=== PATIENT | male | born 1935 | race Caucasian/White ===

== ENCOUNTER 2016-10-08 09:34 | Inpatient (IN) | payer OTHER ==
[~2016-10-08] VITALS: Ht 177.8 cm; Wt 86.9 kg
[2016-10-08] VITALS (8 sets, daily range): BP systolic 136–210; BP diastolic 67–100
--- NOTE | ~2016-10-08 | EKG ---
[place], [place] ELECTROCARDIOGRAM REPORT NAME: MARTIR CHANEY JR UNIT #: [id number] ROOM: 424 DOCTOR: AVERY LANIER MD BIRTHDATE: [birth year] DOS: 10/08/2016 TIME: 09:53 RATE AND RHYTHM: Sinus bradycardia at 53 beats per minute, WI interval 376 milliseconds, QRS duration is 92 milliseconds, corrected QT interval is 468 milliseconds, QRS axis is 15. IMPRESSION: 1. Sinus bradycardia. 2. Prolonged WI interval. 3. T-wave changes in lead V4-V6. There is T-wave flattening noted. Consider anteroseptal ischemia in the lateral leads. No old EKG to compare with. There is first-degree AV block noted. AVERY LANIER MD CM:EKGRPT:ELECTROCARDIOGRAM REPORT [id number] AVERY LANIER MD
[~2016-10-08 09:34] MED LIST: ASPIRIN ADULT L81 M1 PO; Altace5 MG PO; B12,B-12,B 12500 MC1 PO; CEPHALEXIN500 M1 PO; CIPROFLOXACIN500 MG PO; COREG12.5 MG PO; COREG25 MG PO; DYAZIDE; DYAZIDE 25 MG-31 CAP PO; FISH OIL1 IU PO; FOLIC ACID0.8 MG PO; GLUCOPHAGE1000 MG PO; HUMULIN N100 U/ML SC; HYDROCODONE BIT1 T11 PO; LANTUS100 U/ML; LASIX20 MG PO; LEVEMIR10 ML SC; MULTI VITAMINS1 TAB PO; NORVASC10 MG PO; NORVASC5 MG PO; NOVOLOG FLEX100 U/ML SC; NOVOLOG100 U/ML SC; PLAVIX75 MG PO; UNASYN 3GM3 GM/100 M IM; VYTORIN 10 MG-21 TA1 PO
[2016-10-08 09:59] LABS: HEMATOCRIT 44.8 % (42.0-52.0); MEAN CELL VOLUME 95.9 fl (80.0-94.0); MEAN CORPUSCULAR HGB 32.1 pg (27.0-31.0); MEAN CORPUSCULAR HGB CONC 33.5 g/dl (33.0-37.0); MEAN PLATELET VOLUME 10.6 fl (9.6-12.3); PLATELET COUNT AUTOMATED 102 10*3/uL (130-400); RED BLOOD COUNT 4.67 10*6/uL (4.50-5.90); RED CELL DISTRI WIDTH 13.6 % (0-14.5); WHITE BLOOD COUNT 7.1 10*3/uL (4.8-10.8)
[2016-10-08 10:14] LABS: CKMB 3.4 ng/ml (0.5-3.6)
[2016-10-08 10:16] LABS: ALBUMIN 3.1 gm/dl (3.1-4.5); BILIRUBIN, TOTAL 0.5 mg/dl (0.2-1.0); POTASSIUM 3.4 mmol/L (3.5-5.1); TOTAL PROTEIN 6.9 gm/dL (6.4-8.2); TROPONIN I 0.133 ng/ml (<0.5)
[2016-10-08 10:18] LABS: EOSINOPHIL # 0.1 10*3/uL (0-0.4); EOSINOPHILS 2 % (1-4); LYMPHOCYTE # 1.1 10*3/uL (1.3-4.4); METAMYELOCYTES 1 % (0-0); MONOCYTE # 0.4 10*3/uL (0.1-1.0); NEUTROPHIL # 5.5 10*3/uL (2.3-7.9); NEUTROPHILS 77 % (47-73); TOTAL CELLS COUNTED 100 #CELLS
[2016-10-08 10:19] LABS: PLATELET SUFFICIENCY LOW (NORMAL)
[2016-10-08] MEDS ORDERED: LEVEMIR10 ML SC (11:09)
[2016-10-08] MEDS ORDERED: GLUCOPHAGE1000 MG PO (11:12)
[2016-10-08] MEDS ORDERED: ZOCOR10 MG PO ×2 (11:12→11:29)
[2016-10-08] MEDS ORDERED: PLAVIX75 M1 PO (11:12)
[2016-10-08] MEDS ORDERED: COREG12.5 M1 PO (11:26)
[2016-10-08] MEDS ORDERED: ALTACE10 MG PO (11:28)
[2016-10-08 15:27] LABS: BILIRUBIN NEGATIVE (NEGATIVE); BLOOD 2+ (NEGATIVE); CLARITY CLEAR (CLEAR); COLOR YELLOW (YELLOW); GLUCOSE TRACE (NEGATIVE); KETONE NEGATIVE (NEGATIVE); LEUKO ESTERASE NEGATIVE (NEGATIVE); NITRITE NEGATIVE (NEGATIVE); PH 5.5 (5.0-9.0); PROTEIN 3+ (NEGATIVE); UROBILINOGEN 0.2 E.U./dl (0.2-1.0)
[2016-10-08 15:43] LABS: MUCOUS TRACE; URINE REFLEX COMMENT YES (NO)
[2016-10-08 16:30] LABS: URINE TP/CRE RATIO 3.7 (<0.21)
[2016-10-08 20:07] LABS: TROPONIN I 0.198 ng/ml (<0.5)
[2016-10-08 20:08] LABS: CKMB 5.1 ng/ml (0.5-3.6)
[2016-10-09] VITALS: BP 144/53
[2016-10-09 00:49] LABS: CKMB 3.5 ng/ml (0.5-3.6); TROPONIN I 0.174 ng/ml (<0.5)
[2016-10-09 04:00] VITALS: BP 125/87
[2016-10-09 06:40] LABS: BASO % 0.3 % (0.0-1.0); EOS # 0.1 10*3/uL (0.0-0.4); EOS % 1.3 % (1.0-4.0); LYMPH # 1.4 10*3/uL (1.3-4.4); LYMPH % 23.3 % (27.0-41.0); MEAN CELL VOLUME 93.3 fl (80.0-94.0); MEAN CORPUSCULAR HGB 32.2 pg (27.0-31.0); MEAN CORPUSCULAR HGB CONC 34.5 g/dl (33.0-37.0); MEAN PLATELET VOLUME 10.9 fl (9.6-12.3); MONO # 0.5 10*3/uL (0.1-1.0); MONO % 7.5 % (3.0-9.0); NEUT # 4.1 10*3/uL (2.3-7.9); NEUT % 66.9 % (47.0-73.0); PLATELET COUNT AUTOMATED 107 10*3/uL (130-400); RED BLOOD COUNT 3.88 10*6/uL (4.50-5.90); RED CELL DISTRI WIDTH 13.4 % (0-14.5); WHITE BLOOD COUNT 6.1 10*3/uL (4.8-10.8)
[2016-10-09 06:44] LABS: HEMATOCRIT 36.2 % (42.0-52.0); HEMOGLOBIN 12.5 g/dl (14.0-18.0)
[2016-10-09 06:46] LABS: CKMB 2.5 ng/ml (0.5-3.6); TROPONIN I 0.166 ng/ml (<0.5)
[2016-10-09 06:55] LABS: PROTHROMBIN TIME 10.6 SECONDS (9.0-12.4)
[2016-10-09 07:05] LABS: ALBUMIN 2.8 gm/dl (3.1-4.5); BILIRUBIN, TOTAL 0.4 mg/dl (0.2-1.0); FREE T4 1.07 ng/dl (0.76-1.46); PHOSPHOROUS 3.1 mg/dL (2.5-4.9); POTASSIUM 3.9 mmol/L (3.5-5.1); THYROID STIM HORMONE (HS) 5.03 uIU/ml (0.358-4.75)
[2016-10-09 07:50] LABS: HEMOGLOBIN A1c 8.3 % (4.8-5.6)
[2016-10-09 07:59] VITALS: BP 130/70
[2016-10-09 09:41] LABS: VITAMIN D, 25-HYDROXY 8.5 ng/mL (30-100)
[2016-10-09 09:42] LABS: FOLIC ACID 4.76 ng/mL (>5.38); PTH INTACT 223.1 pg/mL (14.0-72.0)
[2016-10-09 12:00] VITALS: BP 136/72
[2016-10-09] MEDS ORDERED: VITAMIN D50000 I3 PO (14:24)
[2016-10-09] MEDS ORDERED: NATURE'S BLEND F1 MG PO (14:24)
[2016-10-09] MEDS ORDERED: LEVEMIR10 ML SC (14:24)
[2016-10-09] MEDS ORDERED: B12,B-12,B 12500 MC1 PO (14:24)
[2016-10-09] MEDS ORDERED: BACTRIM DS 8001 TA1 PO (14:33)
[2016-10-09] MEDS ORDERED: CIPRO500 MG PO (15:12)
[2016-10-10 07:06] LABS: HEPATITIS C VIRUS ANTIBODY <0.1 s/co (0.0-0.9)
[2016-10-10 09:10] LABS: COMPLEMENT C4 001834 20 mg/dL (14-44)
[2016-10-10 14:06] LABS: A/G RATIO 1.1 (0.7-1.7); ALBUMIN 2.9 g/dL (2.9-4.4); ALPHA-1-GLOBULIN 0.2 g/dL (0.0-0.4); BETA GLOBULIN 0.9 g/dL (0.7-1.3); GLOBULIN, TOTAL 2.7 g/dL (2.2-3.9); INTERPRETATION Comment: (.); M-SPIKE Not Observed g/dL (Not Observed); TOTAL PROTEIN, SERUM 5.6 g/dL (6.0-8.5)
[2016-10-10 17:11] LABS: FREE KAPPA LIGHT CHAINS 49.26 mg/L (3.30-19.40); FREE LAMBDA LIGHT CHAINS 42.57 mg/L (5.71-26.30); KAPPA/LAMBDA RATIO 1.16 (0.26-1.65)
== END 2016-10-09 16:06 | disposition home or self-care (01) | DRG 683 ==
LOC: ED 09:34 → 4E 11:11 → EDHOLD 11:11 → 4E 11:27
PROVIDERS: Hospitalist; Internal Medicine Nephrology; Nurse Practitioner Family
DX: N17.0 Acute kidney failure with tubular necrosis (principal); E87.0 Hyperosmolality and hypernatremia; E44.0 Moderate protein-calorie malnutrition; E11.22 Type 2 diabetes mellitus with diabetic chronic kidney disease; N39.0 Urinary tract infection, site not specified; G45.9 Transient cerebral ischemic attack, unspecified; E11.649 Type 2 diabetes mellitus with hypoglycemia without coma; I12.9 Hypertensive chronic kidney disease with stage 1 through stage 4 chronic kidney disease, or unspecified chronic kidney disease; I16.0 Hypertensive urgency; N18.3 Chronic kidney disease, stage 3 (moderate); E87.6 Hypokalemia; E86.0 Dehydration; E55.9 Vitamin D deficiency, unspecified; E53.8 Deficiency of other specified B group vitamins; Z79.82 Long term (current) use of aspirin; Z79.899 Other long term (current) drug therapy; Z79.4 Long term (current) use of insulin; Z88.3 Allergy status to other anti-infective agents; Z98.890 Other specified postprocedural states; Z82.49 Family history of ischemic heart disease and other diseases of the circulatory system; Z82.3 Family history of stroke; Z68.24 Body mass index [BMI] 24.0-24.9, adult

== ENCOUNTER → 2016-12-06 | Outpatient (CLI) | payer OTHER ==
[~2016-12-06] MED LIST changes: +ALTACE10 MG PO; +BACTRIM DS 8001 TA1 PO; +CIPRO500 MG PO; +COREG12.5 M1 PO; +NATURE'S BLEND F1 MG PO; +PLAVIX75 M1 PO; +VITAMIN D50000 I3 PO; +ZOCOR10 MG PO
[2016-12-06 16:32] LABS: BILIRUBIN NEGATIVE (NEGATIVE); BLOOD 1+ (NEGATIVE); CLARITY CLEAR (CLEAR); COLOR YELLOW (YELLOW); GLUCOSE NEGATIVE (NEGATIVE); KETONE NEGATIVE (NEGATIVE); LEUKO ESTERASE NEGATIVE (NEGATIVE); NITRITE NEGATIVE (NEGATIVE); PROTEIN 2+ (NEGATIVE); UROBILINOGEN 0.2 E.U./dl (0.2-1.0)
[2016-12-06 16:39] LABS: URINE TP/CRE RATIO 4.4 (<0.21)
[2016-12-06 16:49] LABS: MUCOUS TRACE; WBC 0-2 wbc/hpf (0-5)
[2016-12-06 16:50] LABS: URINE REFLEX COMMENT YES (NO)
[2016-12-06 16:59] LABS: ALBUMIN 3.2 gm/dl (3.1-4.5); MAGNESIUM 2.2 mg/dL (1.5-2.1); PHOSPHOROUS 2.8 mg/dL (2.5-4.9); POTASSIUM 4.6 mmol/L (3.5-5.1)
[2016-12-06 17:09] LABS: VITAMIN D, 25-HYDROXY 34.8 ng/mL (30-100)
[2016-12-06 17:10] LABS: FERRITIN 33.4 ng/mL (22.0-322.0); PTH INTACT 265.4 pg/mL (14.0-72.0)
[2016-12-06 17:31] LABS: BASO % 0.7 % (0.0-1.0); EOS # 0.1 10*3/uL (0.0-0.4); EOS % 1.9 % (1.0-4.0); HEMATOCRIT 40.1 % (42.0-52.0); HEMOGLOBIN 13.4 g/dl (14.0-18.0); LYMPH # 1.7 10*3/uL (1.3-4.4); LYMPH % 28.5 % (27.0-41.0); MEAN CORPUSCULAR HGB 31.8 pg (27.0-31.0); MEAN CORPUSCULAR HGB CONC 33.4 g/dl (33.0-37.0); MEAN PLATELET VOLUME 11.5 fl (9.6-12.3); MONO # 0.5 10*3/uL (0.1-1.0); MONO % 8.5 % (3.0-9.0); NEUT # 3.5 10*3/uL (2.3-7.9); NEUT % 59.9 % (47.0-73.0); PLATELET COUNT AUTOMATED 132 10*3/uL (130-400); RED BLOOD COUNT 4.22 10*6/uL (4.50-5.90); RED CELL DISTRI WIDTH 13.7 % (0-14.5); WHITE BLOOD COUNT 5.8 10*3/uL (4.8-10.8)
== END | disposition home or self-care (01) ==
LOC: LAB 16:02
PROVIDERS: Internal Medicine Nephrology
DX: N18.3 Chronic kidney disease, stage 3 (moderate) (principal); D63.1 Anemia in chronic kidney disease; N25.81 Secondary hyperparathyroidism of renal origin

== ENCOUNTER 2016-12-27 14:00 | Inpatient (IN) | payer OTHER ==
[~2016-12-27] VITALS: Ht 177.8 cm; Wt 87.1 kg
--- NOTE | ~2016-12-27 | CON ---
[place], [place] REPORT OF CONSULTATION NAME: MARTIR CHANEY JR UNIT #: [id number] ROOM: 531 DOCTOR: CARMEN VICTOR [facility],JAGDSIH BIRTHDATE: [birth year] DOS: 12/29/2016 CARDIOLOGY CONSULTATION THE PATIENT IS ALLERGIC TO CLINDAMYCIN. The patient came in apparently with wound on the right foot. History of diabetes since 1983. Denies any tobacco use. Hemoglobin 11.1, WBC count is unremarkable and glucose is 504. The patient poorly controlled diabetes on 12/29/2016. Creatinine is 2. BUN is 29 indicating chronic kidney disease. Denies any chest discomfort. No syncope, presyncope. Discoloration of the both lower extremities more so on the left than the right. Pulses are diminished. Electrolytes were unremarkable. Cellulitis of the left foot. PHYSICAL EXAMINATION: VITAL SIGNS: Stable. LUNGS: Diminished breath sounds in base, bibasilar rales. HEART: S1, S2, regular. ABDOMEN: Soft. SKIN: Color is good. Not diaphoretic. No cyanosis. Underlying peripheral vascular noninvasive study indicating peripheral arterial disease. The patient for MRI. The patient is on Plavix 75 mg daily and insulin therapy and Norvasc 2.5 mg daily to improve the perfusion and does not appear to be in immediate danger as far as the ischemic limb. And explained to the patient at length. Baby aspirin daily and the patient to undergo aorta bifemoral angiogram with the distal runoff. If it is abnormal intervention otherwise consider therapy. He is aware of it and the patient on simvastatin 10 mg at bedtime daily and heparin 5000 units subQ twice a day on antibiotics. Rectal and genital exam deferred and unrelated. Thank you very much for asking me to see the patient. Follow the patient with you. JAGDISH MORALES MD CM:CONSTR:REPORT OF CONSULTATION 99 12/30/16920 interface
--- NOTE | ~2016-12-27 | PR ---
[place], [place] PROGRESS NOTE NAME: MARTIR CHANEY JR [facility] #: [id number] UNIT #: [id number] ROOM: 531 DOCTOR: YANA URRUTIA DPM BIRTHDATE: [birth year] DOS: 12/31/2016 SUBJECTIVE: The patient was seen for followup Charcot arthropathy of left foot with cellulitis and ulceration, plantar left foot. OBJECTIVE: There is mild erythema that is still noted to the plantar left foot. No signs of abscess. The ulceration is showing no acute drainage at this time to the plantar medial left arch. The patient's WBC count is normal. MRI was discussed with Dr. Parra and the radiologist, consistent with Charcot arthropathy. ASSESSMENT: Diabetic ulceration with improving cellulitis, plantar left foot; Charcot arthropathy; peripheral vascular disease. PLAN: Evaluation and management discussed with the patient. Treatment options, the patient is being discharged today. We will order Bactroban and dressing to the ulceration once daily. The patient will follow with Dr. Parra at the office on Friday. Antibiotics will be continued via Infectious Disease. Again, discussed with patient and recommend he proceed with vascular consultation and intervention. We will offload the Charcot arthropathy deformity with a pneumatic walker on an outpatient basis. Discussed possibility of a TORCH walker or other assistive device to offload the mid foot. The patient is agreeable with this and will follow up on Friday with Dr. Parra. YANA URRUTIA DPM CM:BALJEET [id number] YANA URRUTIA DPM 01/01/17 0235 interface
--- NOTE | ~2016-12-27 | CON ---
[place], [place] REPORT OF CONSULTATION NAME: MARTIR CHANEY JR [facility] #: [id number] UNIT #: [id number] ROOM: 531 DOCTOR: YANA URRUTIA DPM BIRTHDATE: [birth year] DOS: 12/28/2016 SUBJECTIVE: The patient presents as an 81-year-old white male who was seen by my partner, Dr. Parra yesterday at the office for ulceration with cellulitis and suspected Charcot arthropathy of the left foot. I have reviewed the patient's radiographs. These were taken at the office, which I concur revealed evidence of early Charcot arthropathy of the left mid foot. The patient was subsequently admitted yesterday. PAST MEDICAL HISTORY: B12 deficiency, bilateral lower leg chronic edema, essential hypertension, folate deficiency, hypercholesterolemia, protein-calorie malnutrition, secondary hyperparathyroidism of renal origin, stage 3 chronic kidney disease, type 2 diabetes with hyperglycemia with long-term current use of insulin, and vitamin D deficiency. SURGICAL HISTORY: Appendectomy, prostate biopsy, tonsillectomy, heart cath. SOCIAL HISTORY: Denies alcohol, smoking, or illicit drug use. FAMILY HISTORY: Father at age 70 with CHF. Brother at age 68. Mother at age 93 of cause of old age. PHYSICAL EXAMINATION: EXTREMITIES: Lower extremity examination, pedal pulses are diminished of bilateral lower extremity. There is edema to the left lower extremity at the ankle and foot. There is mild erythema noted to the foot. Ulceration, plantar aspect of the left arch is full thickness. There are no signs of deep sinus tract, no signs of acute abscess. Again, review of the radiographs revealed suspicious changes of early Charcot arthropathy. ASSESSMENT: Diabetic ulceration, peripheral vascular disease, diabetic ulceration on plantar aspect left foot, possible early Charcot arthropathy with underlying cellulitis. PLAN: Evaluation and management discussed with the patient treatment options. The patient has a pending MRI scheduled for further evaluation and possible Charcot arthropathy, ordered Bactroban ointment dressing daily to the ulceration. Infectious Disease has been consulted. Also reviewed the results of the arterial Doppler, which revealed findings consistent with moderate arterial disease bilateral, biphasic waveforms in the thigh bilaterally suggested at least mild aortoiliac disease bilateral. The right dorsalis pedis artery appeared occluded and additional arterial disease in the distal superficial femoral or popliteal artery of the left. Therefore, Dr. Mascorro was consulted for vascular consultation. The patient discussed, he would like to be discharged on a PICC line with home antibiotics. Discussed with the patient, he can discuss this with Internal Medicine and Infectious Disease. Again, the patient has pending MRI ordered apparently for Friday. If the patient by chance is discharged, I would recommend outpatient MRI and vascular consultation, but hopefully the patient will be agreeable to stay in-house to have the vascular consultation along with infectious disease followup and MRI performed before [place], [place] REPORT OF CONSULTATION NAME: MARTIR CHANEY JR UNIT #: [id number] ROOM: 531 DOCTOR: YANA URRUTIA DPM BIRTHDATE: [birth year] going home. Discussed this recommendation with the patient. I will discuss the case with Dr. Parra via telephone and notify him of his patient's condition. YANA URRUTIA DPM CM:CONSTR:REPORT OF CONSULTATION 1020 12/28/16 1945 interface
--- NOTE | ~2016-12-27 | PR ---
[place], [place] PROGRESS NOTE NAME: MARTIR CHANEY JR UNIT #: [id number] ROOM: 531 DOCTOR: SEDRICK TANNER DPM BIRTHDATE: [birth year] DOS: 12/30/2016 SUBJECTIVE: This patient is seen for followup of diabetic ulcer and cellulitis of left foot. Also, has probable Charcot arthropathy, left foot. He states he is feeling better. The foot is not painful anymore and he denies fever, chills, nausea, vomiting or night sweats. OBJECTIVE: Neurologic status decreased bilaterally, DP pedal pulses palpable, PT pedal pulses diminished. There are 2 small plantar left medial arch wounds, which are fairly clean and granular. Minimal necrotic tissue was seen at the more lateral wound. There is a moderate decrease in erythema and edema from Friday when I saw the patient. There is no drainage, no fluctuance, no deep sinus tract seen. Mild medial column coapts at the foot with no significant breakdown or significant valgus deformity of the foot on the long axis of the leg. LABORATORY DATA: His white blood cell count is normal. His MRI is being done today. He did have arterial vascular studies done and Dr. Shah did see him, which he basically wanted to keep him on the blood thinner and do no further intervention. ASSESSMENT: Diabetic ulcer, left foot with improving cellulitis, probable Charcot arthropathy, pending MRI. PLAN: Evaluation and management. I discussed with the patient that he is having his MRI today, which will let us know whether or not there is the Charcot process occurring in his left foot. I think from an infectious standpoint, it is improving nicely. I discussed with the patient about the need to be very limited weightbearing on the left foot secondary to the ulcers and possible Charcot. We will see what his MRI shows. Appreciate Infectious Disease input on antibiotics and we will follow up with patient tomorrow if he is still here. If not, we could see him as an outpatient. If his MRI shows Charcot, then he will need long-term immobilization of the left foot. [place], [place] PROGRESS NOTE NAME: MARTIR CHANEY JR UNIT #: [id number] ROOM: 531 DOCTOR: SEDRICK TANNER DPM BIRTHDATE: [birth year] SEDRICK TANNER DPM CM:BALJEET 1156 2 SEDRICK TANNER DPM 12/31/16242 interface
--- NOTE | ~2016-12-27 | PR ---
[place], [place] PROGRESS NOTE NAME: MARTIR CHANEY JR UNIT #: [id number] ROOM: 531 DOCTOR: JAGDISH MORALES MD, FACC BIRTHDATE: [birth year] DOS: 12/30/2016 HISTORY OF PRESENT ILLNESS: The patient feeling well and not in any acute distress. The patient for PICC line today. The patient has a cellulitis wound on the left foot, diabetic, underlying peripheral arterial disease also concern by noninvasive study. The patient needs abdominal aortogram and aortobifemoral angiogram with the distal runoff. I talked to the patient at length and once he confirms and talks to the family whether they decide to have it done we will take him to [place] and do the angiogram. If there is significant disease, we may do the endovascular intervention and if not, conservative management as described. We will try to maintain the optimal blood pressure and watch dilator effect. PHYSICAL EXAMINATION: SKIN: Warm, not diaphoretic. NECK: Supple. LUNGS: No rales heard. HEART: S1, S2, regular. ABDOMEN: Soft. LABORATORY DATA: Hemoglobin 13.2, WBC is 11.8 and electrolytes are normal. INR 1.1. Renal function is good. GFR is normal. Liver functions are unremarkable. Troponin is unremarkable. Chest x-ray done ____ with band-like area of ____. The patient is hypertensive somewhat and the blood pressure 172/78 and afebrile. Heart rate is 60, respiratory rate is 18. Hemoglobin 11.9. IMPRESSION: Hypertension. Peripheral arterial disease may be considered, diabetic, and foot ulcer. PLAN: Increase the amlodipine to 5 mg daily and Imdur 60 mg daily and the patient for peripheral angiogram when the patient decided to have it done. Thank you very much. [place], [place] PROGRESS NOTE NAME: MARTIR CHANEY JR UNIT #: [id number] ROOM: 531 DOCTOR: JAGDISH MORALES MD, FACC BIRTHDATE: [birth year] JAGDISH MORALES MD CM:PNTRANS [id number] JAGDISH MORALES MD [facility] 12/31/16 0618 interface
--- NOTE | ~2016-12-27 | CON ---
[place], [place] REPORT OF CONSULTATION [id number] UNIT #: [id number] ROOM: 531 DOCTOR: ALEXANDRA GRANADOS MD BIRTHDATE: [birth year] DOS: 12/29/2016 The patient last seen on 12/29/2016. REASON FOR CONSULTATION: Possible osteomyelitis. CONSULTING PHYSICIAN: Dr. Messi Saha. HISTORY OF PRESENTING ILLNESS: This is an 81-year-old man who was being seen by Podiatry, Dr. Parra at the office for ulceration with cellulitis with suspected Charcot arthropathy of the left foot. He had debridement of the same for suspicion of abscess and was admitted. He had history of nonhealing ulcers and cellulitis of the same foot in the past, once in 2011 and 2013 and had been treated with IV antibiotics and PICC line at that time. He also has chronic kidney disease. PAST MEDICAL HISTORY: History of chronic kidney disease, hypertension, folate deficiency, hypercholesterolemia, secondary hyperparathyroidism, type 2 diabetes, vitamin D deficiency, B12 deficiency. PAST SURGICAL HISTORY: Appendectomy, prostate biopsy, tonsillectomy and heart cath. SOCIAL HISTORY: Social drinker, does not use illicit drugs and he is a nonsmoker. 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 FAMILY HISTORY: Father had CHF. Mother of old age. ALLERGIES: HE IS ALLERGIC TO CLINDAMYCIN. HOME MEDICATIONS AND CURRENT INPATIENT MEDICATIONS: Reviewed. REVIEW OF SYSTEMS: A 14 review of systems otherwise negative unless otherwise specified in the HPI. PHYSICAL EXAMINATION: VITAL SIGNS: Showed a temperature of 97.8, heart rate 57, blood pressure 178/84, respiratory rate of 20, pulse ox of 95 on room air. GENERAL APPEARANCE: Awake, alert, oriented to time, place and person. No acute distress. Oral cavity: Moist, intact. NECK: Supple, no JVD, no lymphadenopathy. HEART: Regular rate and rhythm. S1, S2 normal. No murmurs, gallops or rubs. LUNGS: Clear to auscultation. Equal air entry bilaterally. ABDOMEN: Soft, nontender, nondistended. Bowel sounds heard. EXTREMITIES: Left leg with edema of the left foot and ankle. Erythema on the plantar aspect with ulceration of the left arch, which is full thickness, no sinus tract, no tunneling, no purulent drainage, but edema involving the left foot as well. LABORATORY DATA: Reviewed. WBC of 5.4, hemoglobin of 11.1, platelets were 98. [place], [place] REPORT OF CONSULTATION NAME: MARTIR CHANEY JR UNIT #: [id number] ROOM: 531 DOCTOR: ALEXANDRA GRANADOS MD BIRTHDATE: [birth year] Sed rate was 50 and C-reactive protein was 14.1. IMAGING: Foot x-ray on the shows chronic erosive changes of the fifth digit, soft tissue swelling. ASSESSMENT AND PLAN: Cellulitis of the left foot with a history of methicillin-sensitive Staphylococcus aures and gram negative infections in the past rule out possible osteomyelitis with underlying Charcot arthropathy. Would recommend obtaining a wound culture. Currently, the patient is on vancomycin and cefepime. He has chronic kidney disease. I would not recommend any nephrotoxic agents in this patient. Ideally, he should have an MRI of the foot, but he cannot have it because of his chronic kidney disease stage 3. I would therefore obtain wound culture results from [facility] rod inserter's office if there are any and plan for at least 2 weeks of IV antibiotics to see if that helps. This is empiric treatment since we do not have any deeper cultures. I would put him on Teflaro 400 mg IV q. 12, adjust it for his creatinine clearance of 32. If his creatinine worsens, it has to be decreased to 300 mg q. 12. Put an order for PICC line, plan for 2 weeks of IV antibiotics, inflammatory markers weekly and labs weekly and fax results to my office at [phone], follow up with myself in 2 weeks' time. Arrange for home health care to take care of the IV antibiotics and wound care. I requested the patient to stay one more day for this to be arranged and the patient agreed for the time being, but he was keen on leaving today as he had episodes of hypoglycemia overnight and was upset about the care here, but his blood sugars are better actually high this morning and he agreed to stay. Plan was discussed with Dr. Tyron Luna. He signed appointment for PICC line. I will continue to follow. Thank you for this consult. ALEXANDRA GRANADOS MD CM:CONSTR:REPORT OF CONSULTATION 1239 12/30/16 0051 interface
[2016-12-27 14:20] VITALS: BP 128/68
[2016-12-27 14:25] LABS: BASO % 0.5 % (0.0-1.0); EOS % 0.2 % (1.0-4.0); HEMATOCRIT 37.6 % (42.0-52.0); HEMOGLOBIN 12.9 g/dl (14.0-18.0); LYMPH # 0.7 10*3/uL (1.3-4.4); LYMPH % 10.8 % (27.0-41.0); MEAN CELL VOLUME 92.2 fl (80.0-94.0); MEAN CORPUSCULAR HGB 31.6 pg (27.0-31.0); MEAN CORPUSCULAR HGB CONC 34.3 g/dl (33.0-37.0); MEAN PLATELET VOLUME 11.2 fl (9.6-12.3); MONO # 0.5 10*3/uL (0.1-1.0); MONO % 6.9 % (3.0-9.0); NEUT # 5.3 10*3/uL (2.3-7.9); NEUT % 81.1 % (47.0-73.0); PLATELET COUNT AUTOMATED 99 10*3/uL (130-400); RED BLOOD COUNT 4.08 10*6/uL (4.50-5.90); RED CELL DISTRI WIDTH 13.5 % (0-14.5); WHITE BLOOD COUNT 6.5 10*3/uL (4.8-10.8)
[2016-12-27 14:36] LABS: PROTHROMBIN TIME 10.8 SECONDS (9.0-12.4)
[2016-12-27 14:42] LABS: ALBUMIN 2.9 gm/dl (3.1-4.5); BILIRUBIN, TOTAL 0.6 mg/dl (0.2-1.0); C-REACTIVE PROTEIN 14.1 MG/DL (0-0.3); CKMB 1.5 ng/ml (0.5-3.6); MAGNESIUM 2.1 mg/dL (1.5-2.1); POTASSIUM 4.4 mmol/L (3.5-5.1)
[2016-12-27 14:44] LABS: TROPONIN I 0.342 ng/ml (<0.045)
[2016-12-27 15:17] VITALS: BP 128/68
[2016-12-27] MEDS ORDERED: CALCITRIOL0.25 MCG PO (15:22)
[2016-12-27 15:50] VITALS: BP 143/68
[2016-12-27 16:00] VITALS: BP 143/68
[2016-12-27 20:00] VITALS: BP 172/72
[2016-12-28] VITALS: BP 150/62
[2016-12-28 06:14] LABS: BASO % 0.3 % (0.0-1.0); EOS # 0.1 10*3/uL (0.0-0.4); EOS % 1.6 % (1.0-4.0); HEMATOCRIT 40.4 % (42.0-52.0); HEMOGLOBIN 13.7 g/dl (14.0-18.0); LYMPH # 0.9 10*3/uL (1.3-4.4); LYMPH % 12.6 % (27.0-41.0); MEAN CORPUSCULAR HGB 30.9 pg (27.0-31.0); MEAN CORPUSCULAR HGB CONC 33.9 g/dl (33.0-37.0); MEAN PLATELET VOLUME 11.6 fl (9.6-12.3); MONO # 0.7 10*3/uL (0.1-1.0); MONO % 9.5 % (3.0-9.0); NEUT # 5.5 10*3/uL (2.3-7.9); NEUT % 75.7 % (47.0-73.0); PLATELET COUNT AUTOMATED 126 10*3/uL (130-400); RED BLOOD COUNT 4.44 10*6/uL (4.50-5.90); RED CELL DISTRI WIDTH 13.6 % (0-14.5); WHITE BLOOD COUNT 7.3 10*3/uL (4.8-10.8)
[2016-12-28 06:28] VITALS: BP 220/78
[2016-12-28 06:35] LABS: HEMOGLOBIN A1c 8.2 % (4.8-5.6)
[2016-12-28 06:53] LABS: FREE T4 1.25 ng/dl (0.76-1.46)
[2016-12-28 06:54] LABS: PROTHROMBIN TIME 10.3 SECONDS (9.0-12.4)
[2016-12-28 06:56] LABS: POTASSIUM 3.2 mmol/L (3.5-5.1)
[2016-12-28 06:59] LABS: THYROID STIM HORMONE (HS) 3.25 uIU/ml (0.358-4.75)
[2016-12-28 07:11] LABS: FOLIC ACID 15.19 ng/mL (>5.38); VITAMIN D, 25-HYDROXY 34.9 ng/mL (30-100)
[2016-12-28 08:00] VITALS: BP 100/58
[2016-12-28 12:00] VITALS: BP 174/74
[2016-12-28 16:00] VITALS: BP 162/76
[2016-12-28 22:34] VITALS: BP 132/68
[2016-12-29] VITALS: BP 178/72
[2016-12-29 06:20] LABS: BASO % 0.6 % (0.0-1.0); EOS # 0.1 10*3/uL (0.0-0.4); EOS % 0.9 % (1.0-4.0); LYMPH % 18.8 % (27.0-41.0); MEAN CELL VOLUME 92.6 fl (80.0-94.0); MEAN CORPUSCULAR HGB 31.5 pg (27.0-31.0); MEAN PLATELET VOLUME 12.1 fl (9.6-12.3); MONO # 0.5 10*3/uL (0.1-1.0); MONO % 9.7 % (3.0-9.0); NEUT # 3.7 10*3/uL (2.3-7.9); NEUT % 69.6 % (47.0-73.0); PLATELET COUNT AUTOMATED 98 10*3/uL (130-400); RED BLOOD COUNT 3.52 10*6/uL (4.50-5.90); RED CELL DISTRI WIDTH 13.5 % (0-14.5); WHITE BLOOD COUNT 5.4 10*3/uL (4.8-10.8)
[2016-12-29 06:22] LABS: HEMATOCRIT 32.6 % (42.0-52.0); HEMOGLOBIN 11.1 g/dl (14.0-18.0)
[2016-12-29 08:00] VITALS: BP 160/70
[2016-12-29 11:42] VITALS: BP 178/84
[2016-12-29 12:00] VITALS: BP 178/84
[2016-12-29 16:00] VITALS: BP 160/82
[2016-12-29 20:00] VITALS: BP 180/78
[2016-12-30] VITALS: BP 170/78
[2016-12-30 03:00] VITALS: BP 132/70
[2016-12-30 06:02] LABS: BASO % 0.4 % (0.0-1.0); EOS # 0.2 10*3/uL (0.0-0.4); HEMOGLOBIN 11.9 g/dl (14.0-18.0); LYMPH # 1.4 10*3/uL (1.3-4.4); MEAN CELL VOLUME 93.5 fl (80.0-94.0); MEAN CORPUSCULAR HGB 30.9 pg (27.0-31.0); MEAN CORPUSCULAR HGB CONC 33.1 g/dl (33.0-37.0); MEAN PLATELET VOLUME 11.5 fl (9.6-12.3); MONO # 0.5 10*3/uL (0.1-1.0); MONO % 9.1 % (3.0-9.0); NEUT % 59.1 % (47.0-73.0); PLATELET COUNT AUTOMATED 103 10*3/uL (130-400); RED BLOOD COUNT 3.85 10*6/uL (4.50-5.90); RED CELL DISTRI WIDTH 13.5 % (0-14.5)
[2016-12-30 08:00] VITALS: BP 170/90
[2016-12-30 16:00] VITALS: BP 154/80
[2016-12-30 20:00] VITALS: BP 140/80
[2016-12-31] VITALS: BP 170/84
[2016-12-31 08:00] VITALS: BP 160/64
[2016-12-31 09:34] LABS: BASO % 0.4 % (0.0-1.0); EOS # 0.1 10*3/uL (0.0-0.4); HEMATOCRIT 35.3 % (42.0-52.0); HEMOGLOBIN 11.9 g/dl (14.0-18.0); LYMPH % 20.8 % (27.0-41.0); MEAN CELL VOLUME 92.7 fl (80.0-94.0); MEAN CORPUSCULAR HGB 31.2 pg (27.0-31.0); MEAN CORPUSCULAR HGB CONC 33.7 g/dl (33.0-37.0); MEAN PLATELET VOLUME 10.8 fl (9.6-12.3); MONO # 0.4 10*3/uL (0.1-1.0); NEUT # 3.4 10*3/uL (2.3-7.9); NEUT % 68.2 % (47.0-73.0); PLATELET COUNT AUTOMATED 107 10*3/uL (130-400); RED BLOOD COUNT 3.81 10*6/uL (4.50-5.90); RED CELL DISTRI WIDTH 13.2 % (0-14.5)
[2016-12-31 09:51] LABS: POTASSIUM 4.2 mmol/L (3.5-5.1)
[2016-12-31] MEDS ORDERED: TEFLARO400 MG IV (11:17)
[2016-12-31] MEDS ORDERED: LEVEMIR10 ML SC (11:49)
[2016-12-31] MEDS ORDERED: CLOPIDOGREL75 MG PO (11:49)
[2016-12-31] MEDS ORDERED: IMDUR SA60 M1 PO (11:49)
[2016-12-31] MEDS ORDERED: AMLODIPINE BESYL5 MG PO (11:49)
[2016-12-31 12:00] VITALS: BP 126/73
== END 2016-12-31 13:00 | disposition home health service (06) | DRG 177 ==
LOC: ED 14:00 → 5E 14:53 → EDHOLD 14:53 → 5E 15:17
PROVIDERS: Emergency Medicine; Hospitalist; Internal Medicine Hospice and Palliative Medicine
PROC: 02H633Z Insertion of Infusion Device into Right Atrium, Percutaneous Approach (ICD-10-PCS; principal; 2016-12-30)
DX: J15.6 Pneumonia due to other Gram-negative bacteria (principal); N17.0 Acute kidney failure with tubular necrosis; E44.0 Moderate protein-calorie malnutrition; E11.22 Type 2 diabetes mellitus with diabetic chronic kidney disease; D69.6 Thrombocytopenia, unspecified; E11.621 Type 2 diabetes mellitus with foot ulcer; N18.3 Chronic kidney disease, stage 3 (moderate); L03.116 Cellulitis of left lower limb; I10 Essential (primary) hypertension; E11.65 Type 2 diabetes mellitus with hyperglycemia; E78.00 Pure hypercholesterolemia, unspecified; D64.9 Anemia, unspecified; Z82.49 Family history of ischemic heart disease and other diseases of the circulatory system; Z88.1 Allergy status to other antibiotic agents; Z79.82 Long term (current) use of aspirin; Z79.899 Other long term (current) drug therapy; E11.649 Type 2 diabetes mellitus with hypoglycemia without coma

== ENCOUNTER → 2017-04-14 | Outpatient (CLI) | payer OTHER ==
[~2017-04-14] MED LIST changes: +AMLODIPINE BESYL5 MG PO; +CALCITRIOL0.25 MCG PO; +CLOPIDOGREL75 MG PO; +IMDUR SA60 M1 PO; +TEFLARO400 MG IV
[2017-04-14 15:58] LABS: BILIRUBIN NEGATIVE (NEGATIVE); BLOOD NEGATIVE (NEGATIVE); CLARITY SL CLOUDY (CLEAR); COLOR YELLOW (YELLOW); GLUCOSE NEGATIVE (NEGATIVE); KETONE NEGATIVE (NEGATIVE); LEUKO ESTERASE NEGATIVE (NEGATIVE); NITRITE NEGATIVE (NEGATIVE); PH 5.5 (5.0-9.0); PROTEIN 1+ (NEGATIVE); SPECIFIC GRAVITY 1.015 (1.005-1.030); UROBILINOGEN 0.2 E.U./dl (0.2-1.0)
[2017-04-14 16:01] LABS: BASO % 0.7 % (0.0-1.0); EOS # 0.1 10*3/uL (0.0-0.4); EOS % 2.4 % (1.0-4.0); HEMATOCRIT 40.4 % (42.0-52.0); HEMOGLOBIN 13.4 g/dl (14.0-18.0); LYMPH # 1.6 10*3/uL (1.3-4.4); LYMPH % 27.2 % (27.0-41.0); MEAN CELL VOLUME 93.7 fl (80.0-94.0); MEAN CORPUSCULAR HGB 31.1 pg (27.0-31.0); MEAN CORPUSCULAR HGB CONC 33.2 g/dl (33.0-37.0); MEAN PLATELET VOLUME 10.8 fl (9.6-12.3); MONO # 0.5 10*3/uL (0.1-1.0); NEUT # 3.6 10*3/uL (2.3-7.9); PLATELET COUNT AUTOMATED 131 10*3/uL (130-400); RED BLOOD COUNT 4.31 10*6/uL (4.50-5.90); RED CELL DISTRI WIDTH 14.1 % (0-14.5); WHITE BLOOD COUNT 5.9 10*3/uL (4.8-10.8)
[2017-04-14 16:05] LABS: RBC 0-2 rbc/hpf (0-2); URINE TP/CRE RATIO 0.8 (<0.21)
[2017-04-14 16:06] LABS: BACTERIA 2+; EPITHELIAL CELLS 0-2; URINE REFLEX COMMENT YES (NO)
[2017-04-14 16:15] LABS: HEMOGLOBIN A1c 8.4 % (4.8-5.6)
[2017-04-14 16:26] LABS: ALBUMIN 3.3 gm/dl (3.1-4.5); MAGNESIUM 2.1 mg/dL (1.5-2.1); PHOSPHOROUS 3.7 mg/dL (2.5-4.9); POTASSIUM 4.4 mmol/L (3.5-5.1)
[2017-04-14 16:38] LABS: FERRITIN 33.1 ng/mL (22.0-322.0); PTH INTACT 185.1 pg/mL (14.0-72.0); VITAMIN D, 25-HYDROXY 27.4 ng/mL (30-100)
== END | disposition home or self-care (01) ==
LOC: LAB 15:20
PROVIDERS: Internal Medicine Nephrology
DX: E11.22 Type 2 diabetes mellitus with diabetic chronic kidney disease (principal); N18.3 Chronic kidney disease, stage 3 (moderate); N25.81 Secondary hyperparathyroidism of renal origin; D63.1 Anemia in chronic kidney disease

== ENCOUNTER 2017-05-11 04:57 | Inpatient (IN) | payer OTHER ==
[~2017-05-11] VITALS: Ht 177.8 cm; Wt 80.9 kg
--- NOTE | ~2017-05-11 | CON ---
[place], [place] REPORT OF CONSULTATION NAME: MARTIR CHANEY JR [facility] #: [id number] UNIT #: [id number] ROOM: 404 DOCTOR: LESLIE LEWIS MD BIRTHDATE: [birth year] DOS: REASON FOR CONSULTATION: Elevated troponin level. 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 He has a 35-year history of diabetes and does have significant associated peripheral vascular disease. In addition, he does have hypertension, hyperlipidemia and coronary artery disease. He has had osteomyelitis of the toes, requiring prolonged antibiotic therapy. Currently, he is suffering from a nonhealing ulceration in his left instep. He was otherwise in his normal state of health until early this morning when he developed difficulty passing his urine. He had some burning and dribbling, but could not adequately empty his bladder and did develop associated suprapubic pain. He therefore came to the hospital where a Villasenor catheter was inserted with relief of his symptoms. Surprisingly, his urine did not show significant white cells and nitrite and leukocyte esterase were negative. A troponin level was obtained and was found to be elevated at 0.054. This was repeated and was 0.056 and 0.059. Cardiology was consulted in order to help determine the cause and significance of this elevation. The patient denies any chest pain or palpitations. He is known to have coronary artery disease and is typically followed by Dr. Wilber Correa at [facility], [facility] in [place]. PAST MEDICAL HISTORY: Includes, 1. Coronary artery disease. The patient had chest discomfort prompting catheterization in August 2012. A drug-eluting stent was placed in the mid LAD. 2. Electrocardiogram, 10/11/2013, suggested new anteroseptal infarction and prompted a stress test. This showed a small inferior wall myocardial infarction as well as a moderate sized anteroapical infarction. The anterior infarction did show a moderate amount of jose g-infarction ischemia. He therefore did undergo repeat catheterization. He was found to have a chronically occluded right coronary artery with a 40% eccentric stenosis of the distal left main. There was a 70% proximal LAD stenosis with sequential 70% stenoses of the mid vessel before severe and diffuse in-stent restenosis of the mid LAD. There was also a 60% stenosis of a large nondominant circumflex and chronic total occlusion of the right coronary artery as noted previously. He was felt to have a sizeable apical infarction and significant diffuse LAD disease without angina and therefore was managed medically without further revascularization. He has not had any other catheterization since then. 3. Hypertension, which is not typically well controlled. 4. Type 2 diabetes mellitus, requiring insulin, present for 35 years. 5. Hyperlipidemia. 6. Chronic renal insufficiency. 7. History of right middle cerebral artery stroke. The patient has mild dysphasia, tingling of his left hand and weakening of his voice since the [place], [place] REPORT OF CONSULTATION NAME: MARTIR CHANEY JR UNIT #: [id number] ROOM: 404 DOCTOR: LESLIE LEWIS MD BIRTHDATE: [birth year] stroke. 8. Osteomyelitis due to peripheral vascular disease and chronic ischemia of his feet. 9. History of appendectomy, prostate biopsy and tonsillectomy. 10. Status post recent angioplasty of his left lower extremity at [facility]. Details of the procedure are not currently available. 11. Echocardiogram, 10/08/2016, normal left ventricular wall motion with severe concentric left ventricular hypertrophy. Left ventricular regional wall motion and systolic function were normal. Mild left atrial enlargement, aortic sclerosis, mild mitral insufficiency. MEDICATIONS: Prior to admission: Aspirin 81 mg per day, calcitriol 0.25 mcg daily, carvedilol 12.5 mg twice a day, clopidogrel 75 mg daily, Ramipril 10 mg daily, simvastatin 10 mg at bedtime, Levemir insulin 35 units subcutaneously daily with 25 units at bedtime. ALLERGIES: The patient lists allergies to CLINDAMYCIN. REVIEW OF SYSTEMS: The patient denies diplopia or loss of vision. He denies focal weakness, although he does have some tingling of his left arm. He denies any recent change in his vision. He denies lightheadedness or syncope. He denies fevers, chills, sweats or any recent weight change. He denies nausea or vomiting. He denies any cough or hemoptysis. He has not had any recent increased dyspnea. He denies any chest pain or palpitations. He denies any blood in his stools or urine. He did have, however, difficulty passing urine as noted above. He has not had any recent peripheral edema, but is treating a foot wound as noted above. He denies any polyuria or polydipsia. The remainder of the review of systems is negative except as noted above. FAMILY HISTORY: The patient's father at age 70 of heart failure. 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 He rarely consumes alcohol. He has not smoked since his 20s. He does not consume any illicit drugs. PHYSICAL EXAMINATION: GENERAL: The patient is a well-nourished white male who is awake, alert and oriented. VITAL SIGNS: Pulse is 70 and regular, blood pressure is 194/74. He is afebrile. He weighs 80.9 kilograms with a body mass index of 25.6. HEENT: Normocephalic, atraumatic. Extraocular muscles are intact. Sclerae are clear. Pupils are equal, round and reactive to light. The oral mucosa is moist. Tongue is midline. NECK: Supple. He has no jugular distention or hepatojugular reflux. Carotids are full and I heard no bruits. He had no neck or supraclavicular masses. No thyromegaly. LUNGS: Respirations were unlabored. He had normal breath sounds bilaterally. [place], [place] REPORT OF CONSULTATION NAME: MARTIR CHANEY JR UNIT #: [id number] ROOM: [facility] DOCTOR: LESLIE LEWIS MD BIRTHDATE: [birth year] There were no wheezes or rales. He had no presacral edema or chest wall tenderness. CARDIOVASCULAR: His heart had a regular rhythm. There was a soft S4 gallop, but no S3. He had a grade 2/6 systolic ejection murmur along the left sternal border, but no diastolic murmurs. The PMI was not displaced. There was no precordial heave, lift or thrill. ABDOMEN: Soft and normally active without masses, organomegaly or bruits. EXTREMITIES: Showed chronic stasis changes bilaterally below the knees. There was no obvious swelling. Peripheral pulses were not palpable in his feet. LABORATORY DATA: Electrocardiogram showed sinus rhythm with first degree AV block. There is evidence for an old anterior wall myocardial infarction and nonspecific ST and T-wave changes. The EKG was not changed significantly from a previous tracing dated 12/27/2016. Sodium on admission was 133, potassium 5.0, BUN 34 and creatinine 2.40. His sugar on admission was 549. Troponin levels are about 0.56 as noted above. I did retrieve the patient's troponin levels done at [facility] as far back as March 2008. In March 2008 his troponin level was 0.11, in 2013 it was 0.28. At that time, the assay normal value was less than 0.5. His numbers now are similar to those obtained years ago, but with the change in normal range. The troponin levels are now considered to be abnormal, whereas before they were normal. IMPRESSION: 1. Chronic elevation in troponin. This is most likely due to a type 2 myocardial injury, brought on by the patient's chronic renal insufficiency, hypertension, etc. I do not see any evidence for an acute myocardial infarction or any change in the patient's cardiac status. 2. History of coronary artery disease, status post stent to the left anterior descending in 2011. Catheterization in 2013 resulted in continued medical therapy. 3. Essential hypertension, which is poorly controlled. 4. Chronic renal insufficiency. 5. Hyperlipidemia. 6. History of osteomyelitis. PLAN: The patient has no symptoms of coronary ischemia at this time and his electrocardiogram is unchanged from December of this year. I believe that his troponin level is chronically elevated as noted above and I do not think that any further cardiac workup at this point would change our management. I will be increasing his beta radha if he will allow us to, but otherwise I would not make any changes in his medications at this time. I thank the hospitalist physicians for asking our advice regarding his care. [place], [place] REPORT OF CONSULTATION NAME: MARTIR CHANEY JR [place] UNIT #: [id number] ROOM: 404 DOCTOR: LESLIE LEWIS MD BIRTHDATE: [birth year] LESLIE LEWIS MD CM:CONSTR:REPORT OF CONSULTATION 181 05/11/172225 interface
[2017-05-11 05:04] VITALS: BP 200/111
[2017-05-11 05:32] VITALS: BP 168/89
[2017-05-11 05:49] LABS: BILIRUBIN NEGATIVE (NEGATIVE); BLOOD 2+ (NEGATIVE); CLARITY CLEAR (CLEAR); COLOR YELLOW (YELLOW); GLUCOSE 3+ (NEGATIVE); KETONE NEGATIVE (NEGATIVE); LEUKO ESTERASE NEGATIVE (NEGATIVE); NITRITE NEGATIVE (NEGATIVE); UROBILINOGEN 0.2 E.U./dl (0.2-1.0)
[2017-05-11 05:50] LABS: BASO % 0.6 % (0.0-1.0); EOS # 0.1 10*3/uL (0.0-0.4); EOS % 1.4 % (1.0-4.0); HEMATOCRIT 43.1 % (42.0-52.0); HEMOGLOBIN 14.5 g/dl (14.0-18.0); LYMPH # 0.8 10*3/uL (1.3-4.4); MEAN CELL VOLUME 91.3 fl (80.0-94.0); MEAN CORPUSCULAR HGB 30.7 pg (27.0-31.0); MEAN CORPUSCULAR HGB CONC 33.6 g/dl (33.0-37.0); MEAN PLATELET VOLUME 10.7 fl (9.6-12.3); MONO # 0.5 10*3/uL (0.1-1.0); MONO % 6.5 % (3.0-9.0); NEUT # 5.6 10*3/uL (2.3-7.9); NEUT % 79.9 % (47.0-73.0); PLATELET COUNT AUTOMATED 143 10*3/uL (130-400); RED BLOOD COUNT 4.72 10*6/uL (4.50-5.90); RED CELL DISTRI WIDTH 13.6 % (0-14.5)
[2017-05-11 06:03] LABS: ALBUMIN 3.6 gm/dl (3.1-4.5); CREATININE 2.4 mg/dL (0.70-1.30)
[2017-05-11 06:03] LABS: BACTERIA TRACE; RBC 41-50 rbc/hpf (0-2)
[2017-05-11 07:15] VITALS: BP 205/92
[2017-05-11] MEDS ORDERED: Clopidogrel75 MG PO (07:27)
[2017-05-11] MEDS ORDERED: LEVEMIR FL100 UNIT/1 SQ ×2 (07:30)
[2017-05-11] MEDS ORDERED: ALTACE10 MG PO (07:32)
[2017-05-11 12:00] VITALS: BP 167/85
[2017-05-11 13:59] LABS: CREATININE 2.08 mg/dL (0.70-1.30); POTASSIUM 4.3 mmol/L (3.5-5.1)
[2017-05-11 14:10] LABS: TROPONIN I 0.059 ng/ml (<0.045)
[2017-05-11 16:00] VITALS: BP 194/74
[2017-05-11 20:00] VITALS: BP 150/70
[2017-05-12] VITALS: BP 150/70
[2017-05-12 06:21] LABS: ALBUMIN 2.9 gm/dl (3.1-4.5); BASO % 0.4 % (0.0-1.0); CREATININE 1.98 mg/dL (0.70-1.30); EOS # 0.2 10*3/uL (0.0-0.4); EOS % 3.3 % (1.0-4.0); HEMATOCRIT 37.2 % (42.0-52.0); HEMOGLOBIN 12.5 g/dl (14.0-18.0); LYMPH # 1.3 10*3/uL (1.3-4.4); LYMPH % 25.9 % (27.0-41.0); MAGNESIUM 1.8 mg/dL (1.5-2.1); MEAN CELL VOLUME 92.3 fl (80.0-94.0); MEAN CORPUSCULAR HGB CONC 33.6 g/dl (33.0-37.0); MEAN PLATELET VOLUME 10.8 fl (9.6-12.3); MONO # 0.5 10*3/uL (0.1-1.0); MONO % 8.9 % (3.0-9.0); NEUT # 3.2 10*3/uL (2.3-7.9); NEUT % 60.9 % (47.0-73.0); PHOSPHOROUS 2.7 mg/dL (2.5-4.9); PLATELET COUNT AUTOMATED 123 10*3/uL (130-400); POTASSIUM 3.9 mmol/L (3.5-5.1); RED BLOOD COUNT 4.03 10*6/uL (4.50-5.90); RED CELL DISTRI WIDTH 13.8 % (0-14.5); TOTAL PROTEIN 7.1 gm/dL (6.4-8.2); WHITE BLOOD COUNT 5.2 10*3/uL (4.8-10.8)
[2017-05-12 06:26] LABS: THYROID STIM HORMONE (HS) 2.59 uIU/ml (0.358-4.75)
[2017-05-12 08:00] VITALS: BP 182/72
[2017-05-12 08:26] LABS: VITAMIN D, 25-HYDROXY 22.1 ng/mL (30-100)
[2017-05-12] MEDS ORDERED: PHENAZOPYRIDINE PO (10:22)
[2017-05-12] MEDS ORDERED: CARVEDILOL25 MG PO (10:22)
[2017-05-12] MEDS ORDERED: VITAMIN D32000 UNIT PO (10:22)
[2017-05-12] MEDS ORDERED: B12,B-12,B 12500 MC1 PO (10:22)
[2017-05-12] MEDS ORDERED: FLOMAX0.4 MG PO (10:32)
== END 2017-05-12 12:30 | disposition home or self-care (01) | DRG 637 ==
LOC: ED 04:57 → EDHOLD 06:26 → 4E 06:26 → ICCU 06:41 → 4E 13:10
PROVIDERS: Hospitalist; Student in an Organized Health Care Education/Training Program; ADMIT Internal Medicine
DX: E11.00 Type 2 diabetes mellitus with hyperosmolarity without nonketotic hyperglycemic-hyperosmolar coma (NKHHC) (principal); N17.0 Acute kidney failure with tubular necrosis; N25.81 Secondary hyperparathyroidism of renal origin; E11.621 Type 2 diabetes mellitus with foot ulcer; E83.51 Hypocalcemia; K86.1 Other chronic pancreatitis; J98.11 Atelectasis; E11.22 Type 2 diabetes mellitus with diabetic chronic kidney disease; E11.51 Type 2 diabetes mellitus with diabetic peripheral angiopathy without gangrene; N18.3 Chronic kidney disease, stage 3 (moderate); I12.9 Hypertensive chronic kidney disease with stage 1 through stage 4 chronic kidney disease, or unspecified chronic kidney disease; E55.9 Vitamin D deficiency, unspecified; E78.00 Pure hypercholesterolemia, unspecified; R31.29 Other microscopic hematuria; R80.9 Proteinuria, unspecified; R81 Glycosuria; E11.65 Type 2 diabetes mellitus with hyperglycemia; K80.20 Calculus of gallbladder without cholecystitis without obstruction; N40.1 Benign prostatic hyperplasia with lower urinary tract symptoms; Z79.4 Long term (current) use of insulin; Z88.1 Allergy status to other antibiotic agents; Z79.899 Other long term (current) drug therapy; Z79.82 Long term (current) use of aspirin; Z87.01 Personal history of pneumonia (recurrent); Z90.49 Acquired absence of other specified parts of digestive tract; Z98.62 Peripheral vascular angioplasty status; Z82.49 Family history of ischemic heart disease and other diseases of the circulatory system; Z82.3 Family history of stroke; Z95.5 Presence of coronary angioplasty implant and graft

== ENCOUNTER → 2017-08-28 | Outpatient (CLI) | payer OTHER ==
[~2017-08-28] MED LIST changes: +CARVEDILOL25 MG PO; +Clopidogrel75 MG PO; +FLOMAX0.4 MG PO; +LEVEMIR FL100 UNIT/1 SQ; +PHENAZOPYRIDINE PO; +VITAMIN D32000 UNIT PO
== END | disposition home or self-care (01) ==
LOC: MRI 14:29
DX: E11.621 Type 2 diabetes mellitus with foot ulcer (principal); L97.522 Non-pressure chronic ulcer of other part of left foot with fat layer exposed; M19.072 Primary osteoarthritis, left ankle and foot; M14.672 Charcot's joint, left ankle and foot; Z86.73 Personal history of transient ischemic attack (TIA), and cerebral infarction without residual deficits

== ENCOUNTER → 2017-10-08 | Outpatient (CLI) | payer OTHER ==
[2017-10-08 16:29] LABS: BILIRUBIN NEGATIVE (NEGATIVE); BLOOD TRACE-INTACT (NEGATIVE); CLARITY CLEAR (CLEAR); COLOR YELLOW (YELLOW); GLUCOSE 3+ (NEGATIVE); KETONE NEGATIVE (NEGATIVE); LEUKO ESTERASE NEGATIVE (NEGATIVE); NITRITE NEGATIVE (NEGATIVE); PH 5.5 (5.0-9.0); SPECIFIC GRAVITY <= 1.005 (1.005-1.030); UROBILINOGEN 0.2 E.U./dl (0.2-1.0)
[2017-10-08 16:32] LABS: BASO % 0.6 % (0.0-1.0); EOS # 0.2 10*3/uL (0.0-0.4); EOS % 3.4 % (1.0-4.0); HEMATOCRIT 33.9 % (42.0-52.0); HEMOGLOBIN 11.8 g/dl (14.0-18.0); LYMPH # 1.6 10*3/uL (1.3-4.4); LYMPH % 33.9 % (27.0-41.0); MEAN CELL VOLUME 94.4 fl (80.0-94.0); MEAN CORPUSCULAR HGB 32.9 pg (27.0-31.0); MEAN CORPUSCULAR HGB CONC 34.8 g/dl (33.0-37.0); MEAN PLATELET VOLUME 10.9 fl (9.6-12.3); MONO # 0.4 10*3/uL (0.1-1.0); MONO % 7.5 % (3.0-9.0); NEUT # 2.5 10*3/uL (2.3-7.9); PLATELET COUNT AUTOMATED 113 10*3/uL (130-400); RED BLOOD COUNT 3.59 10*6/uL (4.50-5.90); RED CELL DISTRI WIDTH 14.9 % (0-14.5); WHITE BLOOD COUNT 4.7 10*3/uL (4.8-10.8)
[2017-10-08 16:38] LABS: URINE CREATININE RANDOM 25.9 mg/dL
[2017-10-08 16:42] LABS: BACTERIA TRACE
[2017-10-08 16:59] LABS: ALBUMIN 3.1 gm/dl (3.1-4.5); CREATININE 2.65 mg/dL (0.70-1.30); PHOSPHOROUS 3.7 mg/dL (2.5-4.9)
[2017-10-08 17:09] LABS: FERRITIN 86.1 ng/mL (22.0-322.0); PTH INTACT 137.2 pg/mL (14.0-72.0); VITAMIN D, 25-HYDROXY 13.6 ng/mL (30-100)
== END | disposition home or self-care (01) ==
LOC: LAB 15:37
PROVIDERS: Internal Medicine Nephrology
DX: E11.22 Type 2 diabetes mellitus with diabetic chronic kidney disease (principal); N18.3 Chronic kidney disease, stage 3 (moderate); C61 Malignant neoplasm of prostate; N25.81 Secondary hyperparathyroidism of renal origin; D63.1 Anemia in chronic kidney disease; Z79.899 Other long term (current) drug therapy

== ENCOUNTER 2019-11-28 19:58 | Emergency (ER) | payer OTHER | END 2019-11-28 23:54 | disposition E | LOC: ED 19:58 | DX: I46.9 Cardiac arrest, cause unspecified (principal); I12.9 Hypertensive chronic kidney disease with stage 1 through stage 4 chronic kidney disease, or unspecified chronic kidney disease; E11.22 Type 2 diabetes mellitus with diabetic chronic kidney disease; N18.3 Chronic kidney disease, stage 3 (moderate); E78.00 Pure hypercholesterolemia, unspecified; Z88.8 Allergy status to other drugs, medicaments and biological substances; Z79.899 Other long term (current) drug therapy; Z79.82 Long term (current) use of aspirin; Z79.4 Long term (current) use of insulin; Z90.49 Acquired absence of other specified parts of digestive tract; Z86.73 Personal history of transient ischemic attack (TIA), and cerebral infarction without residual deficits ==